=== PATIENT | male | born 1990 | race Caucasian/White ===

== ENCOUNTER 2023-08-24 13:07 | Emergency (ER) | payer OTHER ==
[~2023-08-24] VITALS: Ht 195.6 cm; Wt 107.5 kg
[2023-08-24] MEDS ORDERED: CYCLOBENZAPRINE10 MG PO (15:44)
[2023-08-24] MEDS ORDERED: PREDNISONE20 MG PO (15:44)
[2023-08-24 15:58] VITALS: BP 114/69
== END 2023-08-24 15:55 | disposition home or self-care (01) ==
LOC: ED 13:07
DX: S39.012A Strain of muscle, fascia and tendon of lower back, initial encounter (principal); X50.1XXA Overexertion from prolonged static or awkward postures, initial encounter; Y99.0 Civilian activity done for income or pay
CPT/HCPCS: 72100; 99283-25; J7512